=== PATIENT | female | born 1960 ===

== ENCOUNTER 2019-04-10 17:22 | Inpatient (IN) | payer OTHER ==
[~2019-04-10] VITALS: Ht 160 cm; Wt 5.0 kg
--- NOTE | 2019-04-10 17:55 | NUR ---
PTE REFIERE QUE TIENE PALPITACIONES DESDE ESTA TARDE.PTE REFIERE QUE NO TIENE DOLOR DE PECHO. PTE REFIERE QUE TIENE DOLOR DE MORRIS.
--- NOTE | 2019-04-10 19:31 | NUR ---
SEN RECIBE FEMINA ALERTA Y ORIENTADA POR ROMA ESFERAS, EN CAMA CON BARANDAS ELEVADAS Y SEGURAS. SE ORIENTA SOBRE TRATAMIENTO. SE DON MUESTRAS DE LABORATORIO ORDENADAS. SE CANALIZA CON AREA DE VENOPUNCION ERNESTO DE EDEMA O ENROJECIMIENTO. SE ADMINISTRA MEDICAMENTO ORDENADO. SE MANTIENE EN OBSERVACION POR CAMBIOS.PACIENTE PRESENTA 70 DE PULSO MANUAL LUE[place] DE ADMINISTRACION DE MEDICAMENTO.
[2019-04-12] MEDS ORDERED: PROPRANOLOL HCL10 MG PO (13:13)
== END 2019-04-12 13:44 | disposition home or self-care (01) | DRG 310 ==
LOC: ER 17:22 → ICU-2 20:46 → SEC-K 04-11 21:28 → MEDJ 04-12 07:31
PROVIDERS: ADMIT Internal Medicine
PROC: B246ZZZ Ultrasonography of Right and Left Heart (ICD-10-PCS; principal; 2019-04-11)
DX: I48.0 Paroxysmal atrial fibrillation (principal); R00.2 Palpitations; L80 Vitiligo; E66.8 Other obesity